=== PATIENT | female | born 1955 | race Caucasian/White ===

== ENCOUNTER 2019-03-11 13:04 | Day surgery (SDC) | payer OTHER, SELFPAY ==
[~2019-03-11] VITALS: Ht 180.3 cm; Wt 103.6 kg
[~2019-03-11 13:04] MED LIST: ASPI81CH PO; ATEN50 PO; ATOR10 PO; CALCAVITD; CHOL10002; DULO30 PO; EXEM25 PO; GABA100 PO; HERCEPTIN; OMEPRAZOLE MAGN20 MG PO; OXYACE5T PO; QUET25 PO; WELLBUTRIN; [UNRECOGNIZED DRUG - OTHER]
[2019-03-11] MEDS ORDERED: MIRT15 (14:05)
[2019-03-11] MEDS ORDERED: IBUP400 (14:06)
[2019-03-11] MEDS ORDERED: BUPR150T2 (14:07)
[2019-03-11] MEDS ORDERED: CETI5 (14:07)
[2019-03-11] MEDS ORDERED: DOCU100 (14:08)
== END 2019-03-11 17:18 | disposition home or self-care (01) ==
LOC: ORSCSDS 13:04
PROVIDERS: Podiatrist Foot & Ankle Surgery
PROC: 0QSQ04Z Reposition Right Toe Phalanx with Internal Fixation Device, Open Approach (ICD-10-PCS; principal; 2019-03-11 15:15)
PROC: 0QSN04Z Reposition Right Metatarsal with Internal Fixation Device, Open Approach (ICD-10-PCS; principal; 2019-03-11 15:15)
PROC: 0SGP04Z Fusion of Right Toe Phalangeal Joint with Internal Fixation Device, Open Approach (ICD-10-PCS; principal; 2019-03-11 15:15)
PROC: 0SSN0ZZ Reposition Left Metatarsal-Phalangeal Joint, Open Approach (ICD-10-PCS; principal; 2019-03-11 15:15)
PROC: 0QBN0ZZ Excision of Right Metatarsal, Open Approach (ICD-10-PCS; principal; 2019-03-11 15:15)
DX: M20.11 Hallux valgus (acquired), right foot (principal); M20.41 Other hammer toe(s) (acquired), right foot; M20.5X1 Other deformities of toe(s) (acquired), right foot; M19.071 Primary osteoarthritis, right ankle and foot; I10 Essential (primary) hypertension; K21.9 Gastro-esophageal reflux disease without esophagitis; G62.9 Polyneuropathy, unspecified; Z79.899 Other long term (current) drug therapy; Z79.82 Long term (current) use of aspirin
CPT/HCPCS: A9270-GY; C1713; J0690; J1100; J1885; J2250; J2370; J2405; J2704; J3010; J7120

== ENCOUNTER → 2021-01-08 | Outpatient (CLI) | payer OTHER ==
[~2021-01-08] MED LIST changes: +BUPR150T2; +CETI5; +DOCU100; +IBUP400; +MIRT15
== END | disposition home or self-care (01) ==
LOC: LAB SHORT 08:12 → PLD 08:12
DX: L82.1 Other seborrheic keratosis (principal)
CPT/HCPCS: 88305

== ENCOUNTER → 2021-10-22 | Outpatient (CLI) | payer OTHER ==
[2021-10-22 15:52] LABS: Source, Urine Clean Catch
[2021-10-22 16:43] LABS: Appearance, Urine Clear (Clear); Bilirubin, Urine Neg (Neg); Blood, Urine 2+ (Neg); Color, Urine Yellow (P-Yellow); Glucose Qualitative, Urine Neg (Neg); Ketones, Urine Neg (Neg); Leukocyte Esterase, Urine 3+ (Neg); Nitrite, Urine Neg (Neg); Protein, Urine 2+ (Neg); Specific Gravity, Urine 1.015 (1.003-1.022); Urobilinogen, Urine NORM (Normal)
[2021-10-22 17:04] LABS: Amorphous Light (0-Heavy); Bacteria Mod /hpf; Mucus Light (0-Heavy); Squamous Epithelial Cells Few /hpf (Few)
== END | disposition home or self-care (01) ==
LOC: LAB SHORT 15:50
PROVIDERS: Student in an Organized Health Care Education/Training Program
DX: M54.50 Low back pain, unspecified (principal)
CPT/HCPCS: 81001; 87086

== ENCOUNTER 2025-07-22 21:43 | Emergency (ER) | payer OTHER ==
[~2025-07-22] VITALS: Ht 180.3 cm; Wt 104.3 kg
[2025-07-22 22:33] VITALS: BP 138/98
[2025-07-22] MEDS ORDERED: TRIA15CR3 TOP (22:49)
== END 2025-07-22 23:02 | disposition home or self-care (01) ==
LOC: ER 21:43
DX: L23.9 Allergic contact dermatitis, unspecified cause (principal); Z88.8 Allergy status to other drugs, medicaments and biological substances; Z79.82 Long term (current) use of aspirin; Z79.899 Other long term (current) drug therapy; Z87.891 Personal history of nicotine dependence
CPT/HCPCS: 99282; A9270